=== PATIENT | male | born 1950 | race African-American/Black ===

== ENCOUNTER 2023-02-28 16:06 | Emergency (ER) | payer MEDICARE, OTHER ==
[~2023-02-28] VITALS: Ht 182.9 cm; Wt 88.9 kg
[2023-02-28] MEDS ORDERED: ONDANSETRON 4 MG/2 ML VIAL ONE (16:45)
[2023-02-28] MEDS ORDERED: ONDANSETRON 4 MG/2 ML VIAL IV ONE (16:45)
[2023-02-28] MEDS ORDERED: MORPHINE SULFATE 4 MG/1 ML DISP.SYRIN IV ONE (16:45)
[2023-02-28] MEDS ORDERED: MORPHINE SULFATE 4 MG/1 ML DISP.SYRIN ONE (16:45)
[2023-02-28] MEDS ORDERED: HYDROMORPHONE 1 MG/1 ML DISP.SYRIN ONE (18:45)
[2023-02-28] MEDS ORDERED: HYDR-4209 PO (18:56)
[2023-02-28] MEDS ORDERED: HYDROMORPHONE 1 MG/1 ML DISP.SYRIN IV ONE (19:00)
[2023-02-28 19:15] VITALS: BP 149/80; O2SAT 99
== END 2023-02-28 19:16 | disposition home or self-care (01) ==
LOC: EDBD 16:09 → ER 16:09
DX: S82.141A Displaced bicondylar fracture of right tibia, initial encounter for closed fracture (principal); X50.1XXA Overexertion from prolonged static or awkward postures, initial encounter; Y93.89 Activity, other specified; Y92.89 Other specified places as the place of occurrence of the external cause; Y99.8 Other external cause status
CPT/HCPCS: 99284; 96374; 96375; 73564; 73590; J2405; J1170; J2270; A4663